=== PATIENT | male | born 1935 | race Two or more races ===

== ENCOUNTER 2021-02-15 01:47 | Emergency (ER) | payer OTHER ==
[~2021-02-15] VITALS: Ht 172.7 cm; Wt 60.8 kg
--- NOTE | 2021-02-15 02:00 | NUR ---
PATIENT BIBRA 89 FROM HOME FOR C/O RIGHT SHOULDER PAIN S/P FALL AT HOME. PATIENT STATED FEELING OF WEAKNESS. PATIENT IS A/OX 3, RR EVEN AND UNLABORED, NO SIGNS OF SOB NOTED. 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
[2021-02-15 02:29] LABS: BASOPHILS # (AUTO) 0.1 K/uL (0.0-0.2); BASOPHILS % (AUTO) 0.6 % (0.0-2.0); EOSINOPHILS % (AUTO) 3.3 % (0.0-6.0); HEMATOCRIT 41 % (39-51); HEMOGLOBIN 13.7 g/dL (13.5-17.5); LYMPHOCYTES # (AUTO) 0.9 K/uL (0.8-4.8); LYMPHOCYTES % (AUTO) 10.6 % (20.0-44.0); MEAN CORPUSCULAR HGB CONC 34 g/dl (31.0-36.0); MEAN CORPUSCULAR VOLUME 90 fL (80-96); MONOCYTES # (AUTO) 0.8 K/uL (0.1-1.30); MONOCYTES % (AUTO) 9.7 % (2.0-12.0); NEUTROPHILS # (AUTO) 6.4 K/uL (1.8-8.9); NEUTROPHILS % (AUTO) 75.8 % (43.0-81.0); PLATELET COUNT (AUTO) 164 K/uL (150-450); RED BLOOD CELL COUNT(AUTO) 4.55 MIL/uL (4.5-6.0); WHITE BLOOD COUNT (AUTO) 8.4 K/uL (4.3-11.0)
[2021-02-15 02:41] LABS: CREATININE 1.3 mg/dL (0.6-1.3); POTASSIUM 4.2 mmol/L (3.5-5.1)
--- NOTE | 2021-02-15 03:59 | NUR ---
DAUGHTER'S PHONE NUMBER: [phone]
--- NOTE | 2021-02-15 04:20 | NUR ---
SPOKE TO PATIENT'S SON REGARDING PICKUP. THEY SAID THEY ARE ON THEIR WAY.
--- NOTE | 2021-02-15 04:22 | NUR ---
UMAIR LAMB TALKING TO PT DAUGHTER REGARDING PT.
--- NOTE | 2021-02-15 04:41 | NUR ---
PATIENT TOLERATING AMBULATION WITH WALKER
--- NOTE | 2021-02-15 04:48 | NUR ---
CALLED [facility] FOR TRANSPORT HOME, AISSATOU LAMB WILL CALL US BACK PRIOR TO [facility] GIVING TRANSPORT INFO.
--- NOTE | 2021-02-15 05:56 | NUR ---
CALLED DAUGHTER TO INFORM OF PATIENT TRANSPORT HAS ARRIVED.
[2021-02-15 05:57] VITALS: BP 139/68
--- NOTE | 2021-02-15 06:04 | NUR ---
[facility] GIVEN REPORT, PATIENT TRANSFERRED, NO ACUTE DISTRESS NOTED.
== END 2021-02-15 06:05 | disposition home or self-care (01) ==
LOC: ER 01:48
DX: M25.511 Pain in right shoulder (principal); I10 Essential (primary) hypertension; I25.10 Atherosclerotic heart disease of native coronary artery without angina pectoris; E11.9 Type 2 diabetes mellitus without complications; F32.9 Major depressive disorder, single episode, unspecified; W18.09XA Striking against other object with subsequent fall, initial encounter; Y93.89 Activity, other specified; Y92.091 Bathroom in other non-institutional residence as the place of occurrence of the external cause; Y99.8 Other external cause status
CPT/HCPCS: 36415; 73030-TC; 80048-TC; 85025-TC